=== PATIENT | female | born 1950 | race Caucasian/White ===

== ENCOUNTER 2022-01-07 21:01 | Emergency (ER) | payer SELFPAY ==
[2022-01-07 21:14] VITALS: BP 155/79; PULSE 82; RESP 18; TEMP 98.2; BMI 26.4
[2022-01-07] MEDS ORDERED: ACETAMINOPHEN WITH CODEINE 300MG/30MG TABLET PO ONE (21:42)
[2022-01-07] MEDS ORDERED: KETOROLAC TROMETHAMINE 30 MG/1 ML VIAL IM ONE (21:42)
[2022-01-07] MEDS ORDERED: KETOROLAC TROMETHAMINE 30 MG/1 ML VIAL ONE (21:47)
[2022-01-07] MEDS ORDERED: ACETAMINOPHEN WITH CODEINE 300MG/30MG TABLET ONE (21:47)
== END 2022-01-07 22:52 | disposition home or self-care (01) ==
LOC: JERFT 21:01
PROC: 3E023GC Introduction of Other Therapeutic Substance into Muscle, Percutaneous Approach (ICD-10-PCS; principal; 2022-01-07)
DX: K08.89 Other specified disorders of teeth and supporting structures (principal)
CPT/HCPCS: 99284-25